=== PATIENT | female | born 1955 | race Caucasian/White ===

== ENCOUNTER 2018-05-28 10:47 | Emergency (ER) | payer OTHER ==
[~2018-05-28] VITALS: Ht 142.2 cm; Wt 58.6 kg
[2018-05-28] MEDS ORDERED: LEVO88TA4 PO (11:25)
[2018-05-28] MEDS ORDERED: CEPH500 PO (11:25)
[2018-05-28] MEDS ORDERED: NIAC500T7 PO (11:25)
[2018-05-28] MEDS ORDERED: CHOL50004 PO (11:25)
[2018-05-28] MEDS ORDERED: IBUP-2070 PO (11:25)
[2018-05-28] MEDS ORDERED: ACETAMINOPHEN/CODEINE 300-30 MG TABLET PO ONE (13:15)
[2018-05-28] MEDS ORDERED: BUPIVACAINE HCL/PF 0.25% 10 ML VIAL INJ ONE (13:15)
[2018-05-28] MEDS ORDERED: POVIDONE-IODINE 10% 15 ML SOLUTION UD TP ONE (13:15)
[2018-05-28] MEDS ORDERED: DOXYCYCLINE HYCLATE 100 MG CAPSULE PO ONE (14:15)
[2018-05-28 14:52] VITALS: BP 104/67
== END 2018-05-28 15:01 | disposition home or self-care (01) ==
LOC: EMS 10:49
DX: L03.031 Cellulitis of right toe (principal); L60.0 Ingrowing nail; M79.89 Other specified soft tissue disorders; E03.9 Hypothyroidism, unspecified; Z88.2 Allergy status to sulfonamides; Z88.1 Allergy status to other antibiotic agents
CPT/HCPCS: 10060; 99284; J3490